=== PATIENT | male | born 1980 | race Caucasian/White ===

== ENCOUNTER 2020-01-21 18:31 | Inpatient (IN) | payer BC, MEDICAID ==
[~2020-01-21] VITALS: Ht 165.1 cm; Wt 81.2 kg
[2020-01-21] MEDS ORDERED: PRED5TAB48 PO (18:46)
[2020-01-21] MEDS ORDERED: PROG1 PO (18:46)
[2020-01-21] MEDS ORDERED: MYCO180T PO (18:46)
[2020-01-21] MEDS ORDERED: ACETAMINOPHEN 325MG TABLET PO STA (19:09)
[2020-01-21] MEDS ORDERED: SODIUM CHLORIDE 0.9% 1,000 ML IV ONE (19:15)
[2020-01-21 20:17] LABS: HEMOGLOBIN. 15.8 g/dL (14.0-18.0); PLATELET 175 x1000/uL (130-400); RED BLOOD CELL COUNT 5.84 mill/uL (4.7-6.1); RED CELL DISTRIBUTION WIDTH 13.5 % (11.6-14.6)
[2020-01-21 20:21] LABS: CHLORIDE 103 mEq/L (98-107)
[2020-01-21 20:23] LABS: CLARITY URINE CLOUDY (CLEAR); COLOR URINE DARK YELLOW (YELLOW); KETONES URINE 1+ (NEGATIVE); LEUKOCYTE ESTERASE URINE NEGATIVE (NEGATIVE); NITRITE URINE NEGATIVE (NEGATIVE); OCCULT BLOOD URINE NEGATIVE (NEGATIVE); PROTEIN URINE 4+ (NEGATIVE)
[2020-01-21 22:19] LABS: PLATELET ESTIMATE NORMAL
[2020-01-22] MEDS ORDERED: ACETAMINOPHEN 325MG TABLET PO PRN
[2020-01-22] MEDS ORDERED: CLONIDINE 0.1MG TABLET PO PRN
[2020-01-22] MEDS ORDERED: ONDANSETRON HCL 4MG/2ML INJ IV PRN
[2020-01-22] MEDS ORDERED: ASPIRIN 81MG TABLET PO SCH (01:00)
[2020-01-22 02:45] VITALS: BP_SYST 113; BP_DIAS 64; BP_DIAS 74
[2020-01-22 04:00] VITALS: BP 108/62
[2020-01-22 05:52] LABS: BASOPHILS % 0.2 % (0.0-2.0); HEMATOCRIT. 42.5 % (42.0-52.0); HEMOGLOBIN. 14.8 g/dL (14.0-18.0); MEAN CORPUSCULAR HEMOGLOBIN 26.9 pg (28.0-32.0); MEAN CORPUSCULAR VOLUME 77.3 fL (80.0-94.0); MEAN PLATELET VOLUME 9.2 fl (7.4-10.4); MONOCYTES % 3.4 % (2.0-8.0); NEUTROPHILS % 84.4 % (40.0-76.0); PLATELET 151 x1000/uL (130-400); RED BLOOD CELL COUNT 5.49 mill/uL (4.7-6.1); RED CELL DISTRIBUTION WIDTH 13.5 % (11.6-14.6)
[2020-01-22 06:03] LABS: CHLORIDE 105 mEq/L (98-107)
[2020-01-22 08:00] VITALS: BP 109/66
[2020-01-22] MEDS: MYCOPHENOLATE SODIUM 180 MG TABLET.DR PO SCH ×2 (08:26→17:54)
[2020-01-22] MEDS: PREDNISONE 5MG TABLET PO SCH (08:26)
[2020-01-22] MEDS: ENOXAPARIN 40MG/0.4ML SYR SUBCUT SCH ×2 (08:27→08:42)
[2020-01-22] MEDS ORDERED: TACROLIMUS 1MG CAPSULE PO SCH (09:00)
[2020-01-22] MEDS: SODIUM CHLORIDE 0.9% 1,000 ML IV SCH (11:30)
[2020-01-22 12:00] VITALS: BP 112/66
[2020-01-22] MEDS ORDERED: AZITHROMYCIN 500 MG TABLET PO NR (13:45)
[2020-01-22] MEDS: THIAMINE HCL 100MG TABLET PO SCH ×2 (14:31→17:47)
[2020-01-22] MEDS: HYDROXYCHLOROQUINE SULFATE 200MG TABLET PO SCH ×2 (14:31→20:31)
[2020-01-22] MEDS: ZINC SULFATE 220 MG ( 50 ) CAPSULE PO SCH (14:31)
[2020-01-22 16:00] VITALS: BP 114/66
[2020-01-22] MEDS: CEFTRIAXONE 1,000 MG in DEXTROSE 5% WATER 50 ML IV SCH (16:01)
[2020-01-22] MEDS ORDERED: ASCORBIC ACID 500 MG TABLET PO SCH (18:00)
[2020-01-22 20:00] VITALS: BP 108/73
[2020-01-22] MEDS: TACROLIMUS 1MG CAPSULE PO SCH (20:31)
[2020-01-23] VITALS: BP 118/63
[2020-01-23] MEDS ORDERED: ASCORBIC ACID 250 MG TABLET PO SCH (01:00)
[2020-01-23 04:00] VITALS: BP 103/65
[2020-01-23] MEDS: ASCORBIC ACID 500 MG TABLET PO SCH ×3 (06:14→17:07)
[2020-01-23 08:00] VITALS: BP 117/73
[2020-01-23] MEDS: MYCOPHENOLATE SODIUM 180 MG TABLET.DR PO SCH ×2 (08:54→17:06)
[2020-01-23] MEDS: TACROLIMUS 1MG CAPSULE PO SCH ×2 (08:54→20:07)
[2020-01-23] MEDS: THIAMINE HCL 100MG TABLET PO SCH ×2 (08:54→17:06)
[2020-01-23] MEDS: AZITHROMYCIN 250 MG TABLET PO SCH (08:54)
[2020-01-23] MEDS: HYDROXYCHLOROQUINE SULFATE 200MG TABLET PO SCH ×2 (08:54→17:07)
[2020-01-23] MEDS: ZINC SULFATE 220 MG ( 50 ) CAPSULE PO SCH (08:54)
[2020-01-23] MEDS: ENOXAPARIN 40MG/0.4ML SYR SUBCUT SCH ×2 (08:55→09:00)
[2020-01-23] MEDS: PREDNISONE 5MG TABLET PO SCH ×2 (09:00→10:25)
[2020-01-23 12:00] VITALS: BP 128/75
[2020-01-23] MEDS: SODIUM CHLORIDE 0.9% 1,000 ML IV SCH (12:05)
[2020-01-23] MEDS: CEFTRIAXONE 1,000 MG in DEXTROSE 5% WATER 50 ML IV SCH (15:14)
[2020-01-23 16:00] VITALS: BP 117/77
[2020-01-23 20:00] VITALS: BP 123/82
[2020-01-24] VITALS: BP 109/74
[2020-01-24 04:00] VITALS: BP 103/77
[2020-01-24 06:27] LABS: BASOPHILS % 0.2 % (0.0-2.0); EOSINOPHILS % 1.6 % (0.0-5.0); HEMATOCRIT. 44.2 % (42.0-52.0); HEMOGLOBIN. 15.1 g/dL (14.0-18.0); LYMPHOCYTES % 17.3 % (20.0-50.0); MEAN CORPUSCULAR HEMOGLOBIN 27.2 pg (28.0-32.0); MEAN CORPUSCULAR VOLUME 79.4 fL (80.0-94.0); MONOCYTES % 7.8 % (2.0-8.0); NEUTROPHILS % 73.1 % (40.0-76.0); PLATELET 218 x1000/uL (130-400); RED BLOOD CELL COUNT 5.57 mill/uL (4.7-6.1); RED CELL DISTRIBUTION WIDTH 13.7 % (11.6-14.6)
[2020-01-24 06:40] LABS: CHLORIDE 114 mEq/L (98-107)
[2020-01-24 06:46] LABS: PHOSPHORUS 2.8 mg/dL (2.5-4.9)
[2020-01-24 08:00] VITALS: BP 117/77
[2020-01-24] MEDS: ENOXAPARIN 40MG/0.4ML SYR SUBCUT SCH (09:00)
[2020-01-24] MEDS: ZINC SULFATE 220 MG ( 50 ) CAPSULE PO SCH (09:17)
[2020-01-24] MEDS: TACROLIMUS 1MG CAPSULE PO SCH ×2 (09:17→21:13)
[2020-01-24] MEDS: HYDROXYCHLOROQUINE SULFATE 200MG TABLET PO SCH ×2 (09:17→16:23)
[2020-01-24] MEDS: THIAMINE HCL 100MG TABLET PO SCH ×2 (09:17→16:23)
[2020-01-24] MEDS: BENZONATATE 100MG CAPSULE PO PRN (09:17)
[2020-01-24] MEDS: ASCORBIC ACID 500 MG TABLET PO SCH ×2 (09:17→16:23)
[2020-01-24] MEDS: MYCOPHENOLATE SODIUM 180 MG TABLET.DR PO SCH ×2 (09:17→16:23)
[2020-01-24] MEDS: PREDNISONE 5MG TABLET PO SCH (09:18)
[2020-01-24] MEDS: AZITHROMYCIN 250 MG TABLET PO SCH (09:18)
[2020-01-24 12:00] VITALS: BP 106/77
[2020-01-24 14:07] LABS: BG BASE EXCESS -6.2 mmol/L (-2.0-2.0); BG CARBOXYHEMOGLOBIN 0.4 % (0.5-1.5); BG DEOXYHEMOGLOBIN 5.9 % (0.0-5.0); BG FRACTION INSPIRED OXYGEN 21; BG HCO3 ACT 17.5 mmol/L (22.0-26.0); BG METHEMOGLOBIN 0.3 % (0.0-1.5); BG OXYGEN SATURATION 94.1 % (92.0-98.5); BG OXYHEMOGLOBIN 93.4 % (94.0-97.0); BG PCO2 30.6 mmHg (35.0-45.0); BG PH 7.375 (7.350-7.450); BG PO2 70.4 mmHg (75.0-100.0); BG SAMPLE SITE RIGHT BRACHIAL; BG TOTAL HEMOGLOBIN 16.3 g/dL (12.0-18.0); BG VENT MODE ROOM AIR
[2020-01-24] MEDS: CEFTRIAXONE 1,000 MG in DEXTROSE 5% WATER 50 ML IV SCH (14:28)
[2020-01-24] MEDS ORDERED: MAGNESIUM 2 G PREMIX 50 ML IV SCH (15:00)
[2020-01-24 16:00] VITALS: BP 101/75
[2020-01-24] MEDS: CITRIC ACID/SODIUM CITRATE SOLN 30ML UDC PO SCH (17:51)
[2020-01-24 20:00] VITALS: BP 112/82
[2020-01-25] VITALS: BP 115/60
[2020-01-25 04:00] VITALS: BP 101/69
[2020-01-25 07:03] LABS: BASOPHILS % 0.4 % (0.0-2.0); EOSINOPHILS % 2.6 % (0.0-5.0); HEMATOCRIT. 46.5 % (42.0-52.0); HEMOGLOBIN. 15.6 g/dL (14.0-18.0); LYMPHOCYTES % 16.5 % (20.0-50.0); MEAN CORPUSCULAR HEMOGLOBIN 26.7 pg (28.0-32.0); MEAN CORPUSCULAR VOLUME 79.5 fL (80.0-94.0); MEAN PLATELET VOLUME 8.9 fl (7.4-10.4); MONOCYTES % 8.6 % (2.0-8.0); NEUTROPHILS % 71.9 % (40.0-76.0); PLATELET 244 x1000/uL (130-400); RED BLOOD CELL COUNT 5.85 mill/uL (4.7-6.1); RED CELL DISTRIBUTION WIDTH 13.3 % (11.6-14.6)
[2020-01-25 07:10] LABS: CHLORIDE 112 mEq/L (98-107)
[2020-01-25 08:00] VITALS: BP 109/71
[2020-01-25] MEDS: TACROLIMUS 1MG CAPSULE PO SCH ×2 (08:54→21:29)
[2020-01-25] MEDS: AZITHROMYCIN 250 MG TABLET PO SCH (08:54)
[2020-01-25] MEDS: CITRIC ACID/SODIUM CITRATE SOLN 30ML UDC PO SCH (08:54)
[2020-01-25] MEDS: THIAMINE HCL 100MG TABLET PO SCH ×2 (08:55→16:16)
[2020-01-25] MEDS: PREDNISONE 5MG TABLET PO SCH (08:55)
[2020-01-25] MEDS: HYDROXYCHLOROQUINE SULFATE 200MG TABLET PO SCH ×2 (08:55→16:16)
[2020-01-25] MEDS: ASCORBIC ACID 500 MG TABLET PO SCH ×2 (08:55→16:16)
[2020-01-25] MEDS: BENZONATATE 100MG CAPSULE PO PRN (08:55)
[2020-01-25] MEDS: MYCOPHENOLATE SODIUM 180 MG TABLET.DR PO SCH ×2 (08:55→16:16)
[2020-01-25] MEDS: ZINC SULFATE 220 MG ( 50 ) CAPSULE PO SCH (08:55)
[2020-01-25] MEDS: ENOXAPARIN 40MG/0.4ML SYR SUBCUT SCH (09:00)
[2020-01-25 12:00] VITALS: BP 118/71
[2020-01-25] MEDS ORDERED: ALBUTEROL 6.7GM HFA INHALER ORI SCH (13:00)
[2020-01-25] MEDS: LEVOFLOXACIN 500MG TABLET PO SCH (14:47)
[2020-01-25] MEDS: CEFTRIAXONE 1,000 MG in DEXTROSE 5% WATER 50 ML IV SCH (14:47)
[2020-01-25 16:00] VITALS: BP 111/73
[2020-01-25] MEDS: ALBUTEROL 6.7GM HFA INHALER ORI SCH ×2 (17:07→21:29)
[2020-01-25 20:00] VITALS: BP 118/72
[2020-01-25] MEDS: GUAIFENESIN 600MG ER TABLET PO SCH (21:29)
[2020-01-26] VITALS: BP 116/75
[2020-01-26] MEDS: ALBUTEROL 6.7GM HFA INHALER ORI SCH ×2 (03:31→10:00)
[2020-01-26 04:00] VITALS: BP 117/69
[2020-01-26 06:27] LABS: CHLORIDE 111 mEq/L (98-107)
[2020-01-26 07:00] LABS: HEMATOCRIT. 43.5 % (42.0-52.0); HEMOGLOBIN. 15.1 g/dL (14.0-18.0); MEAN CORPUSCULAR HEMOGLOBIN 27.1 pg (28.0-32.0); MEAN CORPUSCULAR VOLUME 78.4 fL (80.0-94.0); MEAN PLATELET VOLUME 8.9 fl (7.4-10.4); PLATELET 288 x1000/uL (130-400); RED BLOOD CELL COUNT 5.55 mill/uL (4.7-6.1); RED CELL DISTRIBUTION WIDTH 13.4 % (11.6-14.6)
[2020-01-26 08:00] VITALS: BP 100/65
[2020-01-26] MEDS: THIAMINE HCL 100MG TABLET PO SCH (09:11)
[2020-01-26] MEDS: ASCORBIC ACID 500 MG TABLET PO SCH (09:12)
[2020-01-26] MEDS: TACROLIMUS 1MG CAPSULE PO SCH (09:16)
[2020-01-26] MEDS: AZITHROMYCIN 250 MG TABLET PO SCH (09:16)
[2020-01-26] MEDS: HYDROXYCHLOROQUINE SULFATE 200MG TABLET PO SCH (09:16)
[2020-01-26] MEDS: ENOXAPARIN 40MG/0.4ML SYR SUBCUT SCH (09:16)
[2020-01-26] MEDS: MYCOPHENOLATE SODIUM 180 MG TABLET.DR PO SCH (09:16)
[2020-01-26] MEDS: PREDNISONE 5MG TABLET PO SCH (09:16)
[2020-01-26] MEDS: GUAIFENESIN 600MG ER TABLET PO SCH (09:19)
[2020-01-26] MEDS: ZINC SULFATE 220 MG ( 50 ) CAPSULE PO SCH (09:19)
[2020-01-26 10:55] VITALS: BP 100/65
[2020-01-26] MEDS: LEVOFLOXACIN 500MG TABLET PO SCH (11:00)
[2020-01-26 19:22] LABS: PLATELET ESTIMATE NORMAL
== END 2020-01-26 11:54 | disposition home or self-care (01) | DRG 871 ==
LOC: ER 18:31 → 7EST 01-22 00:44 → EDBEDREQTM 01-22 00:48 → EDBEDREQDT 01-22 00:48 → EDBEDREQ 01-22 00:48 → ENRESERV 01-22 01:17
PROVIDERS: ADMIT Internal Medicine Nephrology; ATTEND Internal Medicine Nephrology
DX: A41.89 Other specified sepsis (principal); U07.1 COVID-19; J12.89 Other viral pneumonia; J96.01 Acute respiratory failure with hypoxia; N17.9 Acute kidney failure, unspecified; N18.9 Chronic kidney disease, unspecified; E11.22 Type 2 diabetes mellitus with diabetic chronic kidney disease; I12.9 Hypertensive chronic kidney disease with stage 1 through stage 4 chronic kidney disease, or unspecified chronic kidney disease; E83.42 Hypomagnesemia; R74.0 Nonspecific elevation of levels of transaminase and lactic acid dehydrogenase [LDH]; Z79.899 Other long term (current) drug therapy
CPT/HCPCS: 36415; 36600; 71045; 80048; 80053; 81003; 82375; 82728; 82805; 83605; 83615; 83735; 83880; 84100; 84484; 85025; 86140; 87635; 87804; 93005; 99285; J0696; J1650; J3475; J7030; J7060; J7507; J7512; J7517

== ENCOUNTER 2024-08-16 09:43 | Inpatient (IN) | payer BC ==
[~2024-08-16] VITALS: Ht 170.2 cm; Wt 83.0 kg
[~2024-08-16 09:43] MED LIST: MYCO180T PO; PRED5TAB48 PO; TACR1CAP2 PO
[2024-08-16 10:55] LABS: HEMATOCRIT. 49.4 % (42.0-52.0); HEMOGLOBIN. 16.8 g/dL (14.0-18.0); MEAN CORPUSCULAR HEMOGLOBIN 27.1 pg (28.0-32.0); MEAN CORPUSCULAR VOLUME 79.8 fL (80.0-94.0); MEAN PLATELET VOLUME 8.7 fl (7.4-10.4); PLATELET 162 x1000/uL (130-400); RED BLOOD CELL COUNT 6.18 mill/uL (4.7-6.1); RED CELL DISTRIBUTION WIDTH 13.5 % (11.6-14.6); WHITE BLOOD COUNT 6.2 x1000/uL (4.5-11.0)
[2024-08-16 11:02] LABS: CARBON DIOXIDE 23 mEq/L (21-32); CHLORIDE 107 mEq/L (98-107); POTASSIUM 3.8 mEq/L (3.5-5.1); SODIUM 140 mEq/L (136-145)
[2024-08-16 11:04] LABS: DIFFERENTIAL COMMENT 1
[2024-08-16 11:08] LABS: CREATININE 1.2 mg/dL (0.6-1.3); GLUCOSE 184 mg/dL (70-105); UREA NITROGEN BLOOD 20 mg/dL (9-23)
[2024-08-16 11:10] LABS: ALANINE AMINOTRANSFERASE 18 IU/L (10-49); ALBUMIN 4.4 g/dL (3.2-4.8); ASPARTATE AMINOTRANSFERASE 18 IU/L (<34); BILIRUBIN DIRECT 0.2 mg/dL (<=3.0); BILIRUBIN TOTAL 0.9 mg/dL (0.1-1.0); PROTEIN TOTAL 6.9 g/dL (6.0-8.3)
[2024-08-16 12:02] LABS: TROPONIN I HIGH SENSITIVITY 50 ng/L (3.0-53)
[2024-08-16 12:03] LABS: LACTIC ACID 2.7 mmol/L (0.4-2.0)
[2024-08-16] MEDS ORDERED: CEFTRIAXONE 1GM/50ML 50 ML IV ONE (13:15)
[2024-08-16] MEDS ORDERED: ONDANSETRON HCL 4MG/2ML INJ IV ONE (13:15)
[2024-08-16] MEDS ORDERED: SODIUM CHLORIDE 0.9% 500 ML IV NR (15:01)
[2024-08-16] MEDS: ONDANSETRON HCL 4MG/2ML INJ IV NR (15:04)
[2024-08-16] MEDS: SODIUM CHLORIDE 0.9% 500 ML IV ONE (15:05)
[2024-08-16] MEDS: CEFTRIAXONE 1GM/50ML 50 ML IV NR (15:05)
[2024-08-16 15:13] LABS: MICROCYTOSIS 1+; PLATELET ESTIMATE NORMAL
[2024-08-16] MEDS: DIPHENOXYLATE/ATROPINE 2.5/0.025MG TABLET PO ONE (15:33)
[2024-08-16 15:40] LABS: TROPONIN I HIGH SENSITIVITY 66 ng/L (3.0-53)
[2024-08-16 18:10] LABS: CLARITY URINE CLEAR (CLEAR); COLOR URINE DARK YELLOW (YELLOW); GLUCOSE URINE NEGATIVE (NEGATIVE); KETONES URINE TRACE (NEGATIVE); LEUKOCYTE ESTERASE URINE NEGATIVE (NEGATIVE); NITRITE URINE NEGATIVE (NEGATIVE); OCCULT BLOOD URINE TRACE (NEGATIVE); PH URINE 5.5 (4.5-8.0); PROTEIN URINE 3+ (NEGATIVE); SPECIFIC GRAVITY URINE 1.026 (1.005-1.030)
[2024-08-16 18:37] LABS: BACTERIA URINE 2+; RBC URINE 0-2 /hpf (0-2); SQUAMOUS EPITHELIAL CELL URINE RARE /lpf (RARE/1+)
[2024-08-16 18:38] LABS: WBC URINE 0-2 /hpf (0-2)
[2024-08-16] MEDS ORDERED: CLONIDINE 0.1MG TABLET PO PRN (22:30)
[2024-08-16] MEDS ORDERED: ONDANSETRON HCL 4MG/2ML INJ IV PRN (22:30)
[2024-08-16] MEDS ORDERED: ACETAMINOPHEN 325MG TABLET PO PRN ×2 (22:30)
[2024-08-16] MEDS ORDERED: IPRATROPIUM/ALBUTEROL 0.5-3(2.5)MG/3ML NEB HHN PRN (22:30)
[2024-08-16] MEDS ORDERED: DOCUSATE SODIUM 100MG CAPSULE PO PRN (22:30)
[2024-08-17] MEDS: PIPERACILLIN/TAZO 3.375G/50ML 50 ML IV SCH (00:52)
[2024-08-17] MEDS: VANCOMYCIN 1.5GM PMX (XELLIA) 300 ML IV NR (00:52)
[2024-08-17 02:57] VITALS: BP 117/62; PULSE 93; RESP 18; TEMP 36.5848
[2024-08-17 08:00] VITALS: BP 102/68; PULSE 95; RESP 18; TEMP 36.50292; O2SAT 99
[2024-08-17 08:23] LABS: POTASSIUM 3.6 mEq/L (3.5-5.1)
[2024-08-17 08:24] LABS: BASOPHILS % 0.2 % (0.0-2.0); CALCIUM 9.7 mg/dL (8.7-10.4); EOSINOPHILS % 0.2 % (0.0-5.0); HEMATOCRIT. 48.5 % (42.0-52.0); LYMPHOCYTES % 8.9 % (20.0-50.0); MEAN CORPUSCULAR HEMOGLOBIN 26.6 pg (28.0-32.0); MEAN CORPUSCULAR HGB CONC 33.1 g/dL (31.0-37.0); MEAN CORPUSCULAR VOLUME 80.3 fL (80.0-94.0); MEAN PLATELET VOLUME 9.2 fl (7.4-10.4); NEUTROPHILS % 84.7 % (40.0-76.0); PLATELET 151 x1000/uL (130-400); RED BLOOD CELL COUNT 6.03 mill/uL (4.7-6.1); RED CELL DISTRIBUTION WIDTH 13.7 % (11.6-14.6); WHITE BLOOD COUNT 5.4 x1000/uL (4.5-11.0)
[2024-08-17 08:29] LABS: CREATININE 1.3 mg/dL (0.6-1.3)
[2024-08-17] MEDS ORDERED: MYCOPHENOLATE SODIUM 180 MG TABLET.DR PO SCH (09:00)
[2024-08-17] MEDS ORDERED: TACROLIMUS 1MG CAPSULE PO SCH (09:00)
[2024-08-17] MEDS: PREDNISONE 5MG TABLET PO SCH (09:36)
[2024-08-17 12:00] VITALS: BP 110/69; PULSE 89; RESP 19; TEMP 35.94732; O2SAT 99
[2024-08-17] MEDS ORDERED: TACR1CAP PO (12:02)
[2024-08-17] MEDS ORDERED: MYCO180T3 PO (12:02)
[2024-08-17] MEDS: MYCOPHENOLATE SODIUM 180 MG TABLET.DR PO SCH (14:41)
[2024-08-17] MEDS: TACROLIMUS 1MG CAPSULE PO SCH (14:41)
[2024-08-17] MEDS ORDERED: VANCOMYCIN 1GM PMX (XELLIA) 200 ML IV SCH (15:00)
[2024-08-17 15:31] VITALS: BP 125/79; PULSE 85; TEMP 97.9; O2SAT 99
== END 2024-08-17 17:10 | disposition home or self-care (01) | DRG 872 ==
LOC: ER 09:57 → 5WST 13:08 → 8WST 08-17 01:57
PROVIDERS: ADMIT Family Medicine Adult Medicine; ATTEND Family Medicine Adult Medicine
DX: A41.9 Sepsis, unspecified organism (principal); Z94.0 Kidney transplant status; I50.9 Heart failure, unspecified; K52.9 Noninfective gastroenteritis and colitis, unspecified; E86.0 Dehydration; Z79.899 Other long term (current) drug therapy
CPT/HCPCS: 36415; 71045; 80048; 80076; 81003; 83605; 83880; 84145; 84484; 85025; 93005; 99285; J0696; J2543; J3370; J7040; J7507; J7512; J7517